=== PATIENT | female | born 1955 | race Caucasian/White ===

== ENCOUNTER 2016-05-24 07:29 | Day surgery (SDC) | payer BC ==
[~2016-05-24 07:29] MED LIST: Buffered Lidocaine 1% SYR 3ML* 3 ML/SYR SYRINGE INTRADERM ONE; Bupivacaine 0.25% EPI 200,000* 30 ML SDV ONE
[2016-05-24] MEDS ORDERED: ceFAZolin 2 GM PREMIX (*) 2 GM/50 ML BAG IVPB ONE (07:45)
[2016-05-24] MEDS ORDERED: Lidocaine 1% INJ* 10 MG/ML 30 ML SDV ONE (08:47)
[2016-05-24] MEDS ORDERED: Bupivacaine 0.5% W/EPI SDV* 30 ML VIAL ONE (08:49)
[2016-05-24] MEDS ORDERED: fentaNYL* 50 MCG/ML 2 ML VIAL (100 MCG VIAL) ONE (08:59)
[2016-05-24] MEDS ORDERED: Midazolam* 1 MG/ML 5 ML VIAL (5 MG) ONE (08:59)
[2016-05-24] MEDS ORDERED: oxyCODONE/Acetamin 5/325 MG* TAB PO PRN (09:57)
--- NOTE | 2016-05-24 09:57 | SURGPN ---
Brief Operative Note - Surgery Procedures: Procedures OPERATIVE REPORT PRE-OP: Left posterior thigh lipoma POST-OP: 9 cm left posterior thigh lipoma PROCEDURE: Excision of left posterior 9 cm thigh lipoma SURGEON: MD Dari ANESTHESIA:Local with MAC Dr. Patel ASST: KIRILL Lowe-student IVF: min EBL:min SPECIMEN:lipoma left posterior thigh DRAIN: none WOUND CLASS: one COMPLICATIONS: none TO PACU
[2016-05-24 10:47] VITALS: BP 131/72
--- NOTE | 2016-05-25 02:48 | OP ---
DATE OF OPERATION: 05/24/16 - [facility] DATE OF : 59 SURGEON: Waldo Chapin MD SPECTROGRAPHER: KIRILL Nelson student. ANESTHESIOLOGIST: Dr. Quesada. ANESTHESIA: Local with monitored anesthesia care. PRE-OP DIAGNOSIS: Large lipoma, left posterior thigh. POST-OP DIAGNOSIS: 9 cm lipoma, left posterior thigh. OPERATIVE PROCEDURE: Excision of a 9 cm lipoma, left posterior thigh. WOUND CLASSIFICATION: I. COMPLICATIONS: None. DRAINS: None. SPECIMENS: Lipoma from left posterior thigh. DESCRIPTION OF PROCEDURE: Written informed consent was obtained, the site was marked with indelible ink and preoperative antibiotics were administered. The patient was taken to the operating room and placed in the right lateral decubitus position. Sequential compression devices and a warming blanket were applied. The anesthesia was administered. The left posterior thigh just below the buttocks were prepped and draped widely in the usual sterile fashion. Time-out verification was completed. Next, a 0.25% Marcaine mixed with 1% lidocaine was infiltrated extensively over the the palpable soft tissue mass. A vertical incision of about 5 cm was made, and a 9 cm lipoma was completely excised quite easily from the surrounding tissue and it was quite discrete and appeared to be benign lipoma. The specimen was sent in formalin and labeled as such. Hemostasis was assured. The wound was then closed in layers of 3-0 interrupted subcutaneous Polysorb suture. The skin was approximated with subcuticular 4-0 Polysorb suture. Steri-Strips and sterile dressings were applied. The patient tolerated the procedure well, was taken to the recovery room in stable condition. [id number]/[facility] #: [id number] [facility]
== END 2016-05-24 10:58 | disposition home or self-care (01) ==
LOC: OR 07:29
PROVIDERS: ATTEND Surgery
DX: D17.24 Benign lipomatous neoplasm of skin and subcutaneous tissue of left leg (principal); I10 Essential (primary) hypertension; G35 Multiple sclerosis
CPT/HCPCS: 88304; J0690; J2250; J3010